=== PATIENT | male | born 1965 | race Caucasian/White ===

== ENCOUNTER 2017-08-03 21:09 | Emergency (ER) | payer OTHER ==
--- NOTE | 2017-08-03 21:28 | ED SKIN/ALLERGY COMPLAINT ---
History of Present Illness General Chief Complaint: Sore Throat, Dental Pain Stated Complaint: THROAT SWOLLEN Source: patient, family, old records Exam Limitations: no limitations Vital Signs & Intake/Output Vital Signs & Intake/Output Vital Signs Date Time Temp Pulse Resp B/P B/P Pulse O2 O2 Flow FiO2 Mean Ox Delivery Rate 08/03 2319 98.5 88 16 124/57 96 Room Air 08/03 2155 96 97 Room Air 08/035 96 08/035 98.7 08/03 2109 109 17 160/83 98 Room Air ED Intake and Output 08/04 0000 08/03 1200 Intake Total Output Total Balance Patient 250 lb Weight Weight Reported by Patient Measurement Method Allergies Coded Allergies: No Known Allergies (08/03/17) Reconcile Medications Amoxicillin 500 MG TABLET 1 TAB PO TID tonsillopharyngitis Diphenhydramine HCl (Benadryl Allergy) 25 MG TABLET 1-2 TAB PO Q6P PRN angioedema Famotidine (Pepcid) 20 MG TABLET 1 TAB PO BID allergy Prednisone 20 MG TABLET 1 TAB PO BID angioedema Triage Note: PT REPORTS 3 DAYS OF SORE THROAT. SEEN AT URGENT CARE YESTERDAY AND PLACED ON Z-PACK. TOOK FIRST DOSE LAST NIGHT. STATES IN MIDDLE OF NIGHT, FELT THOUGH THROAT WAS SWELLING. HAS BEEN TAKING BENADRYL 25 MG Q6HR SINCE THEN. TOOK 2ND DOSE OF Z PACK TONIGHT AND STATES SWELLING IS WORSE IN THROAT. ABLE TO HANDLE SECRETIONS. 02 SAT 98% RA. Triage Nurses Notes Reviewed? yes Onset: last night Duration: hour(s):, constant, continues in ED, getting worse Timing: recent history Severity: severe Possible Factors: exposure to allergen, medications Modifying Factors: Improves With: antihistamine. Associated Symptoms: nasal congestion, swelling/mass/lumps HPI: 1 day prior to admission patient was prescribed azithromycin for sore throat. After taking his first dose last night he complained of mild throat swelling. He took his second dose about 4 hours prior to admission with gradual worsening of throat closing despite taking additional Benadryl with shortness of breath. He denies fever chills nausea vomiting diarrhea abdominal pain chest pain headache dysuria rash bleeding. Past History Travel History Traveled to [place] past 21 day No Medical History Any Pertinent Medical History? see below for history Musculoskeletal: SPINAL STENOSIS Surgical History Surgical History: non-contributory Psychosocial History What is your primary language [place] Tobacco Use: Never used ETOH Use: denies use Family History Hx Contributory? No Review of Systems Review of Systems Constitutional: Reports: no symptoms. EENTM: Reports: see HPI, throat swelling. Respiratory: Reports: see HPI, short of breath. Cardiovascular: Reports: no symptoms. GI: Reports: no symptoms. Genitourinary: Reports: no symptoms. Musculoskeletal: Reports: no symptoms. Skin: Reports: no symptoms. Neurological/Psychological: Reports: no symptoms. Hematologic/Endocrine: Reports: no symptoms. Immunologic/Allergic: Reports: no symptoms. All Other Systems: Reviewed and Negative Physical Exam Physical Exam General Appearance: well developed/nourished, alert, awake, anxious, severe distress, obese Head: atraumatic, normal appearance Eyes: Bilateral: normal appearance, PERRL, EOMI. Ears, Nose, Throat: hearing grossly normal, moist mucus membranes, unable to swallow secretions Neck: normal inspection, supple, full range of motion, no midline tenderness Respiratory: chest non-tender, decreased breath sounds, wheezing Cardiovascular: regular rate/rhythm, normal peripheral pulses, tachycardia, norml femoral pulses equa Peripheral Pulses: 4+ carotid (R), 4+ carotid (L) Gastrointestinal: normal bowel sounds, soft, non-tender, no organomegaly Back: normal inspection, normal range of motion, no vertebral tenderness Extremities: normal inspection, normal capillary refill, normal range of motion, no edema, no ligament instability Neurologic/Psych: no motor/sensory deficits, awake, alert, oriented x 3, normal gait, normal mood/affect, tip printer II-XII nml as tested Reflexes: 2+: bicep (R), bicep (L). Skin: intact, normal color, warm/dry Lymphatic: no anterior cervical ck Progress Differential Diagnosis: allergic reaction, anaphylaxis, angioedema Plan of Care: Current Medications Sig/Maik Start time Last Medication Dose Stop Time Status Admin Acetaminophen 1,000 MG ONCE ONE 08/03 2214 [facility] ([facility]) 08/04 2215 Comments: After interventions patient able to speak, swallow secretions with no respiratory distress. Departure Departure Time of Disposition: 42 Disposition: HOME OR SELF CARE Condition: Stable Clinical Impression Primary Impression: Angioedema Secondary Impressions: Allergic reaction caused by a drug, Tonsillopharyngitis Referrals: Marta DANG,Dylan Carty (PCP/Family) Departure Forms: Customer Survey General Discharge Information RELEASE- WORK Prescriptions: Current Visit Scripts Amoxicillin 1 TAB PO TID #30 TAB Prednisone 1 TAB PO BID #10 TAB Diphenhydramine HCl (Benadryl Allergy) 1-2 TAB PO Q6P PRN angioedema #30 TAB Ref 1 Famotidine (Pepcid) 1 TAB PO BID #10 TAB Critical Care Note Critical Care Note Critical Care Time: 30-74 min (60)
[2017-08-03] MEDS ORDERED: PREDNISONE20 M1 PO (23:41)
[2017-08-03] MEDS ORDERED: AMOXICILLIN500 M3 PO (23:41)
[2017-08-03] MEDS ORDERED: BENADRYL ALLERG25 M2 PO (23:41)
[2017-08-03] MEDS ORDERED: PEPCID20 M1 PO (23:41)
[2017-08-04 00:43] VITALS: BP 126/56
== END 2017-08-04 00:44 ==
LOC: ERH 21:09
DX: T78.3XXA Angioneurotic edema, initial encounter (principal); R22.1 Localized swelling, mass and lump, neck; T36.3X5A Adverse effect of macrolides, initial encounter; B00.2 Herpesviral gingivostomatitis and pharyngotonsillitis
CPT/HCPCS: 1263; 96372; 96374; 96375; J0131; J0171; J1200; J2930